=== PATIENT | female | born 1975 | race Caucasian/White ===

== ENCOUNTER 2020-03-09 14:21 | Emergency (ER) | payer SELFPAY ==
[2020-03-09 14:27] VITALS: BP 189/98; PULSE 84; RESP 14; TEMP 36.3; O2SAT 99
--- NOTE | 2020-03-09 15:34 | ED.SKABFB ---
HPI - Skin/Abscess/Foreign Bdy General Chief complaint: Skin/Abscess/Foreign Body Stated complaint: pain on side of feet/abcess on groin Time Seen by Provider: 03/09/20 15:35 Source: patient and RN notes reviewed Mode of arrival: ambulatory Limitations: no limitations History of Present Illness HPI narrative: 44 year old female who presents to [facility] with complaints of boil type lesion to her left groin since yesterday. Patient states that she put Neosporin and Bandaide over area and has noted some drainage to site with surrounding redness and pain. Patient also states she thought she noted what she thought might be 2 puncture areas on the lateral right ankle with no pain or swelling noted to area. Patient has scattered areas of eczema around bilateral ankle with some scabbing noted where she has itched skin, small white center lesion to lateral right ankle area no drainage noted MD complaint: abscess/boil Onset (ago): day(s) (1) Tetanus up to date: yes Location: genitals (left groin area) Severity: mild Severity scale (1-10): 3 Quality: burning and aching Pain Consistency: constant Relieving factors: none Exacerbating factors: palpation and movement Context: none Associated symptoms: denies other symptoms Treatments prior to arrival: bandages and OTC topical medication Related Data Home Medications Medication Instructions Recorded Confirmed albuterol sulfate 2 puff INHALATION QID 03/09/20 03/09/20 loratadine [Claritin] 10 mg PO DAILY 03/09/20 03/09/20 Allergies Allergy/AdvReac Type Severity Reaction Status Date / Time Sulfa (Sulfonamide Allergy Rash Verified 03/09/20 14:50 Antibiotics) Review of Systems Review of Systems: Narrative: CONSTITUTIONAL: Denies fever, chills, or sweats. EYES: Denies visual changes, redness, or discharge. ENT: Denies rhinorrhea, congestion, sore throat, or otalgia. CARDIOVASCULAR: Denies chest pain, palpitations, or edema. RESPIRATORY: Denies cough or dyspnea. GASTROINTESTINAL: Denies abdominal pain, nausea, vomiting, or diarrhea. GENITOURINARY: Denies dysuria or hematuria. SKIN: Denies rash or itching.scattered eczema around bilateral ankles which has some scabbing from scratching white lesion on lateral right ankle no drainage noted, abscess lesion to left groin area in pubic hair region with 1cm pustular lesion with surrounding erythema. MUSCULOSKELETAL: Denies back pain, joint pain, or myalgia. NEUROLOGIC: Denies headache, numbness, or weakness. PSYCHIATRIC: Denies anxiety or depression. All systems reviewed & are unremarkable except as noted in HPI and below PMFSH Past Medical History Medical History (Updated 03/14/20 @ 19:58 by Tamica Chavez NP) Acute eczema Asthma Cutaneous abscess of groin Seasonal allergies Social History Social History (Updated 03/14/20 @ 19:53 by Tamica Chavez NP) Smoking status: Current some day smoker Living arrangements: with family Gender identity (if verbalized by the patient): Female Comments At time of signature, agree with nursing past medical, surgical, social and family history. There is no relevant family history pertinent to the presenting complaint Exam Narrative: Exam Narrative: GENERAL: Well-appearing, well-nourished, and in no acute distress. HEAD: Normocephalic, atraumatic. EYES: PERRLA and EOMI. ENT: Nares clear, no rhinorrhea or epistaxis. Mucous membranes moist. NECK: Supple.no lymphasdenopathy CHEST: Clear to auscultation. No respiratory distress. HEART: Regular rate and rhythm. No murmur heard. Normal peripheral pulses. ABDOMEN: Soft, nontender, nondistended, normal active bowel sounds. EXTREMITIES: Normal range of motion. No edema. SKIN: Warm, dry, eczema rash around bilateral ankles with small white center lesion on right lateral ankle no drainage. abscess left groin in pubic hair region with 1cm red draining center with surrounding redness and inflammation total of 3.5 cm diameter, area is painful to pal
== END 2020-03-09 15:58 | disposition home or self-care (01) ==
PROVIDERS: Emergency Provider Registered Nurse; PCP Internal Medicine
DX: L40.9 Psoriasis, unspecified (principal); L02.214 Cutaneous abscess of groin; J45.909 Unspecified asthma, uncomplicated
CPT/HCPCS: 81025; 87070; 87075; 87147; 87186; 87205; 99203; G0463

== ENCOUNTER 2020-12-10 15:05 | Emergency (ER) | payer SELFPAY ==
[2020-12-10 15:10] VITALS: BP 193/106; PULSE 97; RESP 20; TEMP 35.9; O2SAT 100
--- NOTE | 2020-12-10 15:13 | ED.SKABFB ---
HPI - Skin/Abscess/Foreign Bdy General Chief complaint: Skin/Abscess/Foreign Body Stated complaint: getting boils Time Seen by Provider: 12/10/20 15:13 Source: patient and RN notes reviewed History of Present Illness HPI narrative: Patient is a 45-year-old female who presents the urgent care with complaints of boils to the lower abdomen and groin region. Patient states that she has had them in the past and has seen a general surgeon. Patient states that the one on the groin has been draining, otherwise she has tried to keep them clean and covers them with Band-Aids during the day. Patient works for housekeeping at a local facility and states that she is fat and sweaty and knows that the cause . Patient denies of any fevers, nausea, vomiting. No other acute complaints. No acute distress noted. Patient aware of the plan of care. Some parts of this dictation were generated by voice recognition software and may contain typographical and/or grammatical inaccuracies. Related Data Allergies Allergy/AdvReac Type Severity Reaction Status Date / Time Sulfa (Sulfonamide Allergy Rash Verified 12/10/20 15:19 Antibiotics) Review of Systems Review of Systems: Narrative: CONSTITUTIONAL: Denies fever, chills, or sweats. EYES: Denies visual changes, redness, or discharge. ENT: Denies rhinorrhea, congestion, sore throat, or otalgia. CARDIOVASCULAR: Denies chest pain, palpitations, or edema. RESPIRATORY: Denies cough or dyspnea. GASTROINTESTINAL: Denies abdominal pain, nausea, vomiting, or diarrhea. GENITOURINARY: Denies dysuria or hematuria. SKIN: Reports of boils to the lower abdomen and groin MUSCULOSKELETAL: Denies back pain, joint pain, or myalgia. NEUROLOGIC: Denies headache, numbness, or weakness. All other systems reviewed are negative, except as documented in HPI. [facility] Past Medical History Medical History (Updated 12/10/20 @ 15:28 by SANTA Trejo) Acute eczema Asthma Cutaneous abscess of groin Seasonal allergies Social History Social History (Updated 03/14/20 @ 19:53 by Tamica Chavez NP) Smoking status: Current some day smoker Gender identity (if verbalized by the patient): Female Comments At the time of my signature, I reviewed and agree with the nursing past medical, surgical, social, and family history. There is no relevant family history pertinent to the patient complaint. Exam Narrative: Exam Narrative: GENERAL: This is a well-nourished, well-developed patient, in no apparent distress. HEAD: normocephalic, atraumatic. EYES: PERRL. Sclera clear/white. Vision is grossly intact. EARS: External ears normal NOSE: External nose normal with no obvious nasal discharge, nares without redness, no rhinorrhea. THROAT: Mucous membranes moist NECK: Neck supple CARDIOVASCULAR: Regular rate and rhythm without murmurs, gallops, or rubs. RESPIRATORY: Clear to auscultation. Breath sounds equal bilaterally. No wheezes, rales, or rhonchi. SKIN: Pinpoint erythemic folliculitis noted to the right lower abdomen, left lower abdomen, and left groin without edema NEURO: awake, alert, and oriented to person, place and time. There were no obvious focal neurologic abnormalities. EXTREMITIES: No clubbing, cyanosis, or edema. Course Vital Signs Vital signs: Vital Signs Temperature 96.7 F L 12/10/20 15:10 Pulse Rate 97 12/10/20 15:10 Respiratory Rate 20 12/10/20 15:10 Blood Pressure 193/106 H 12/10/20 15:10 Pulse Oximetry 100 12/10/20 15:10 Temperature 96.7 F L 12/10/20 15:10 Pulse Rate 97 12/10/20 15:10 Respiratory Rate 20 12/10/20 15:10 Blood Pressure 193/106 H 12/10/20 15:10 Pulse Oximetry 100 12/10/20 15:10 Reviewed-patient is informed that they may have pre-hypertension or hypertension based on a blood pressure reading in the department. I recommend the patient call the primary care provider listed on their discharge instructions or a physician of their choice this week to arra
[2020-12-10 15:39] VITALS: BP 164/100
== END 2020-12-10 15:39 | disposition home or self-care (01) ==
PROVIDERS: Emergency Provider Nurse Practitioner Family
DX: B37.2 Candidiasis of skin and nail (principal); L73.9 Follicular disorder, unspecified; F17.200 Nicotine dependence, unspecified, uncomplicated; J45.909 Unspecified asthma, uncomplicated
CPT/HCPCS: 99213; G0463

== ENCOUNTER 2021-01-22 08:12 | Emergency (ER) | payer OTHER, SELFPAY ==
--- NOTE | 2021-01-22 08:22 | ED.SKABFB ---
HPI - Skin/Abscess/Foreign Bdy General Chief complaint: Skin/Abscess/Foreign Body Stated complaint: boil, or ingrown hair Time Seen by Provider: 01/22/21 08:15 Source: patient and RN notes reviewed History of Present Illness HPI narrative: Patient is a 45-year-old female who presents the urgent care with complaints of a boil to the vaginal region. Patient states that she has stopped shaving and has only been trimming the areas . Patient has been seen at our facility just recently for the same complaints. Patient states that she ran out of her nystatin powder but has been using an [id number] similar type powder to keep the area dry. Patient states she is unable to see her doctor until next Monday. Patient denies of any fevers, chills, nausea, vomiting. States that she noticed the area approximately 1 week ago and it started draining yesterday. No other acute complaints. No acute distress noted. Patient aware of the plan of care. Some parts of this dictation were generated by voice recognition software and may contain typographical and/or grammatical inaccuracies. Related Data Home Medications Medication Instructions Recorded Confirmed No Home Medications 01/22/21 01/22/21 Allergies Allergy/AdvReac Type Severity Reaction Status Date / Time Sulfa (Sulfonamide Allergy Rash Verified 12/10/20 15:19 Antibiotics) Review of Systems Review of Systems: Narrative: CONSTITUTIONAL: Denies fever, chills, or sweats. EYES: Denies visual changes, redness, or discharge. ENT: Denies rhinorrhea, congestion, sore throat, or otalgia. CARDIOVASCULAR: Denies chest pain, palpitations, or edema. RESPIRATORY: Denies cough or dyspnea. GASTROINTESTINAL: Denies abdominal pain, nausea, vomiting, or diarrhea. GENITOURINARY: Denies dysuria or hematuria. SKIN: Reports of an ingrown hair to the vaginal area MUSCULOSKELETAL: Denies back pain, joint pain, or myalgia. NEUROLOGIC: Denies headache, numbness, or weakness. All other systems reviewed are negative, except as documented in HPI. [facility] Past Medical History Medical History (Updated 01/22/21 @ 08:42 by SANTA Trejo) Acute eczema Asthma Cutaneous abscess of groin Seasonal allergies Social History Social History (Updated 03/14/20 @ 19:53 by Tamica Chavez NP) Smoking status: Current some day smoker Gender identity (if verbalized by the patient): Female Comments At the time of my signature, I reviewed and agree with the nursing past medical, surgical, social, and family history. There is no relevant family history pertinent to the patient complaint. Exam Narrative: Exam Narrative: GENERAL: This is a well-nourished, well-developed patient, in no apparent distress. HEAD: normocephalic, atraumatic. EYES: PERRL. Sclera clear/white. Vision is grossly intact. EARS: External ears normal NOSE: External nose normal with no obvious nasal discharge, nares without redness, no rhinorrhea. THROAT: Mucous membranes moist NECK: Neck supple CARDIOVASCULAR: Regular rate and rhythm without murmurs, gallops, or rubs. RESPIRATORY: Clear to auscultation. Breath sounds equal bilaterally. No wheezes, rales, or rhonchi. SKIN: Noninfected pinpoint 0.25 cm folliculitis noted to the perineal area with scant drainage NEURO: awake, alert, and oriented to person, place and time. There were no obvious focal neurologic abnormalities. EXTREMITIES: No clubbing, cyanosis, or edema. Course Vital Signs Vital signs: Vital Signs Temperature 98.6 F 01/22/21 08:28 Pulse Rate 82 01/22/21 08:28 Respiratory Rate 20 01/22/21 08:28 Blood Pressure 199/105 H 01/22/21 08:28 Pulse Oximetry 99 01/22/21 08:28 Temperature 98.6 F 01/22/21 08:28 Pulse Rate 82 01/22/21 08:28 Respiratory Rate 20 01/22/21 08:28 Blood Pressure 199/105 H 01/22/21 08:28 Pulse Oximetry 99 01/22/21 08:28 Reviewed-patient is informed that they may have pre-hypertension or hypertension ba
[2021-01-22 08:28] VITALS: BP 199/105; PULSE 82; RESP 20; TEMP 37; O2SAT 99
== END 2021-01-22 08:53 | disposition home or self-care (01) ==
PROVIDERS: Emergency Provider Nurse Practitioner Family; PCP Internal Medicine
DX: L73.9 Follicular disorder, unspecified (principal); F17.210 Nicotine dependence, cigarettes, uncomplicated; J45.909 Unspecified asthma, uncomplicated
CPT/HCPCS: 99211; G0463